=== PATIENT | male | born 1955 | race Caucasian/White ===

== ENCOUNTER 2019-01-11 06:36 | Day surgery (SDC) | payer MEDICARE, OTHER ==
[2019-01-07 08:55] VITALS: BMI 39.1
[~2019-01-11 06:36] MED LIST: LACTATED RINGERS 1,000 ML IV SCH
[2019-01-11 07:22] VITALS: TEMP 97.4
[2019-01-11 07:23] LABS: Glucose,Whole Blood 170 mg/dL (75-99)
[2019-01-11] MEDS ORDERED: PROPOFOL 10 MG/ML 20 ML VIAL IV ONE (07:36)
[2019-01-11 08:10] VITALS: RESP 16
--- NOTE | 2019-01-11 08:19 | P.PCN ---
Date of Procedure: 01/11/19 Procedure(s) Performed: Procedure: Colonoscopy and polypectomy and biopsy with Spot injection to localize a distal sigmoid lesion. Preoperative diagnosis: Screening for neoplasia, patient has history of polyps. Postoperative diagnosis: 1. Two small polyps in the proximal sigmoid snared and retrieved by suction. 2. Distal sigmoid flat lesion raising the possibility of cancer, biopsied and Spot injections used to localize it. Preparation: HalfLytely prep. Sedation: Was provided by anesthesia. Brief clinical history: The patient is 63-year-old male who is scheduled for this evaluation for screening for neoplasia because of history of polyps. He had 2 or 3 prior exams, his last exam was in 2010. The patient has no abdominal complaints, bleeding or anemia. Procedure: With the patient on his left lateral decubitus position and after informed consent and adequate sedation, the perianal area was inspected and it did not show any fissures or fistulas. There were no masses felt on digital rectal examination. The Olympus CFH 190L video colonoscope was then inserted in the rectum in the usual fashion and advanced to the cecum. There were 2 small polyp in the proximal sigmoid that were snared and retrieved by suction and in the distal sigmoid, around 25 cm from the anal verge, there was a flat polypoid lesion lesion measuring around 3 or 4 cm that raised the possibility of malignancy. A picture multiple biopsies were obtained and a total of 4 mL of Spot were injected to localize it. I retroflexed the endoscope in the rectum then the endoscope was withdrawn. The patient tolerated the procedure well. Plan: I summarized the findings to the patient and his . Will await pathology results and make further plans. I will keep you updated on his progress.
[2019-01-11 08:25] VITALS: PULSE 76
[2019-01-11 08:37] VITALS: BP 170/74
== END 2019-01-11 10:10 | disposition home or self-care (01) ==
LOC: ORWHC2ENDO 06:36
DX: Z12.11 Encounter for screening for malignant neoplasm of colon (principal); C18.7 Malignant neoplasm of sigmoid colon; D12.5 Benign neoplasm of sigmoid colon; Z86.010 Personal history of colon polyps; I10 Essential (primary) hypertension; E11.9 Type 2 diabetes mellitus without complications; M19.90 Unspecified osteoarthritis, unspecified site; E78.5 Hyperlipidemia, unspecified; G47.33 Obstructive sleep apnea (adult) (pediatric); Z99.89 Dependence on other enabling machines and devices; E66.01 Morbid (severe) obesity due to excess calories; Z68.39 Body mass index [BMI] 39.0-39.9, adult; Z79.4 Long term (current) use of insulin; Z79.899 Other long term (current) drug therapy
CPT/HCPCS: 88305; 45385; 45380; 45381; J2704; 44404

== ENCOUNTER → 2019-02-04 | Outpatient (CLI) | payer MEDICARE, OTHER ==
[2019-02-04 13:24] LABS: Blood Urea Nitrogen 15 mg/dL (9-20)
--- NOTE | 2019-02-04 14:48 | CT ---
EXAMINATION TYPE: CT ChestAbdPelvis w con DATE OF EXAM: 02/04/2019 COMPARISON: 09/09/2013 HISTORY: Abnormal colonoscopy, colon cancer. CT DLP: 1624 mGycm CONTRAST: CT scan of the chest, abdomen and pelvis is performed with Oral Contrast and with IV Contrast, patien t injected with 100 mL of Isovue M300. CT Chest: LUNGS: The lungs are clear and free of infiltrate or atelectasis. No pulmonary nodule or mass is det ected. No pleural effusion or CT evidence of interstitial lung disease. MEDIASTINUM: Thoracic aorta is of normal caliber. The heart is not enlarged. Stable mediastinal kiya nopathy. Correlate for sarcoidosis. HILAR STRUCTURES: No evidence for mass. Stable hilar adenopathy. OTHER: No significant abnormality. CONTRAST CT ABDOMEN AND PELVIS FINDINGS: LIVER/GB: Mild fatty hepatic infiltration noted. No calcified gallstones. No space occupying hepat ic lesion. Biliary tree is of normal caliber. PANCREAS: No inflammation. No distinct mass. SPLEEN: No splenic enlargement. No lesion seen. ADRENALS: No nodule. No thickening. KIDNEYS/BLADDER: No hydronephrosis. No nephrolithiasis. No disctinct renal mass. BOWEL: Normal appendix. There is rectosigmoid wall thickening this may reflect the site of the colono scopy abnormality. No obstructive change. No inflammation. GENITAL ORGANS: No gross abnormality. LYMPH NODES: No greater than 1cm abdominal or pelvic lymph nodes are appreciated. AORTA: No significant abnormality. OSSEOUS STRUCTURES: No significant abnormality is seen. OTHER: No significant additional abnormality is seen. IMPRESSION: 1. There is rectosigmoid wall thickening this may reflect the site of the colonoscopy abnormality. 2. No evidence for metastatic disease. 3. Hilar and mediastinal adenopathy may be on the basis of sarcoidosis. Correlate clinically.
== END | disposition home or self-care (01) ==
LOC: RADCTMAIN 12:27
PROVIDERS: ATTEND Internal Medicine Hematology & Oncology
DX: C18.7 Malignant neoplasm of sigmoid colon (principal); K63.89 Other specified diseases of intestine; R59.0 Localized enlarged lymph nodes
CPT/HCPCS: 82565; 84520; 71260; 74177; 36415; Q9967

== ENCOUNTER → 2019-03-09 | Outpatient (CLI) | payer MEDICARE, OTHER ==
[2019-03-09 10:50] LABS: HCT 43.9 % (39.0-53.0); HGB 15.2 gm/dL (13.0-17.5); MCH 31.2 pg (25.0-35.0); MCHC 34.6 g/dL (31.0-37.0); MCV 90.1 fL (80.0-100.0); Mean Platelet Volume 7.4; Platelet Count 267 k/uL (150-450); RBC 4.88 m/uL (4.30-5.90); RDW 13.7 % (11.5-15.5); WBC 6.2 k/uL (3.8-10.6)
[2019-03-09 11:23] LABS: Potassium 4.4 mmol/L (3.5-5.1)
== END ==
LOC: LABPAT 08:53
PROVIDERS: ATTEND Surgery
DX: Z01.818 Encounter for other preprocedural examination (principal); Z01.812 Encounter for preprocedural laboratory examination; C18.9 Malignant neoplasm of colon, unspecified
CPT/HCPCS: 36415; 80051; 85027; 93005

== ENCOUNTER 2019-03-11 06:26 | Inpatient (IN) | payer MEDICARE, OTHER ==
[~2019-03-11 06:26] MED LIST changes: +ALVIMOPAN 12 MG CAPSULE PO ONE; +DEXAMETHASONE SOD PHOSPHATE 10 MG/ML 1 ML VIAL IV ONE; +HEPARIN SODIUM,PORCINE 5,000 UNIT/ML 1 ML VIAL SQ ONE; +HYDROmorphone 0.5 MG/0.5 ML SYRINGE IVP PRN; -LACTATED RINGERS 1,000 ML IV SCH; +ONDANSETRON 4 MG/2 ML VIAL IVP ONE; +ceFAZolin 3 GM in SODIUM CHLORIDE 0.9% 100 ML IVPB ONE; +metroNIDAZOLE-NS PMX 500 MG in SALINE 1 100ML.BAG IVPB ONE
[2019-03-11 07:09] LABS: Glucose,Whole Blood 290 mg/dL (75-99)
[2019-03-11] MEDS: LACTATED RINGERS 1,000 ML IV SCH (07:09)
[2019-03-11] MEDS ORDERED: LIDOCAINE 1% 20 ML VIAL (10MG/ML) FOR IV START INTRADERMA ONE (07:14)
--- NOTE | 2019-03-11 07:16 | P.GSHP ---
History of Present Illness H&P Date: 03/11/19 Chief Complaint: Sigmoid colon cancer 63-year-old male seen in the office in late January. Patient is asymptomatic but was found on colonoscopy to have a adenocarcinoma at 25 cm. Denies constipation. No rectal bleeding. Recent CAT scan shows no evidence of metastasis. Past Medical History Past Medical History: Diabetes Mellitus, Hyperlipidemia, Hypertension, Osteoarthritis (OA), Sleep Apnea/CPAP/BIPAP Additional Past Medical History / Comment(s): uses cpap, sarcoidosis History of Any Multi-Drug Resistant Organisms: None Reported Past Surgical History: Adenoidectomy, Joint Replacement, Tonsillectomy Additional Past Surgical History / Comment(s): BILAT TKA. COLONOSCOPY Past Anesthesia/Blood Transfusion Reactions: No Reported Reaction Additional Psychological History / Comment(s): Depression and panic attacks with last knee surgery related to pain control. Past Alcohol Use History: None Reported - Past Family History Mother Family Medical History: Cancer Additional Family Medical History / Comment(s): colon Father Family Medical History: CVA/TIA Sister(s) Family Medical History: Cancer Additional Family Medical History / Comment(s): pancreatic Brother(s) Additional Family Medical History / Comment(s): in sleep at age 51. Medications and Allergies Home Medications Medication Instructions Recorded Confirmed Type Atorvastatin [Lipitor] 40 mg PO HS 10/15/16 03/11/19 History Losartan Potassium [Cozaar] 50 mg PO QAM 10/15/16 03/11/19 History metFORMIN HCL 1,000 mg PO BID 10/15/16 03/11/19 History Insulin Glargine,Hum.rec.anlog 64 mg SQ QAM 01/07/19 03/11/19 History [Patrick Christianson] Allergies Allergy/AdvReac Type Severity Reaction Status Date / Time No Known Allergies Allergy Verified 03/08/19 14:15 Surgical - Exam Vital Signs Temp Pulse Resp BP Pulse Ox 97.9 F 77 16 162/85 97 03/11/19 06:57 03/11/19 06:57 03/11/19 06:57 03/11/19 06:57 03/11/19 06:57 Physical exam: General: Well-developed, well-nourished HEENT: Normocephalic, sclerae nonicteric Abdomen: Nontender, nondistended Extremities: No edema Neuro: Alert and oriented Results - Labs Abnormal Lab Results - Last 24 Hours (Table) 03/11/19 Range/Units 07:02 POC Glucose (mg/dL) 290 H (75-99) mg/dL Assessment and Plan (1) Cancer of sigmoid colon Narrative/Plan: Options review the patient. We'll proceed with sigmoid colectomy at this time. Risks of bleeding, infection, leak, abscess, recurrent injury, hernia, respiratory and cardiac consultations reviewed. Additionally the patient I discussed on several occasions over the last few weeks the issues regarding the EEA stapler not being available in the size 29. At this time we decided to proceed with resection knowing that we have the size 25, 33 and options of handsewn anastomosis available to us. They understand and wish to proceed. Current Visit: Yes Status: Acute Code(s): C18.7 - MALIGNANT NEOPLASM OF SIGMOID COLON SNOMED Code(s): 942170305
[2019-03-11] MEDS: MIDAZOLAM (PF) 2 MG/2 ML VIAL IV PRN ×2 (07:26→07:29)
[2019-03-11] MEDS ORDERED: fentaNYL (PF) 50 MCG/ML 2 ML AMP IVP ONE ×2 (07:26→07:29)
[2019-03-11] MEDS ORDERED: ONDANSETRON 4 MG/2 ML VIAL IVP PRN (07:47)
[2019-03-11] MEDS ORDERED: NALOXONE 0.4 MG/ML 1 ML VIAL IV PRN (07:47)
[2019-03-11] MEDS ORDERED: ROCURONIUM BROMIDE 10 MG/ML 10 ML VIAL IV ONE (07:50)
[2019-03-11] MEDS ORDERED: PHENYLEPHRINE-0.9% NACL SYG 1 MG/10 ML SYRINGE ONE (07:50)
[2019-03-11] MEDS ORDERED: PROPOFOL 10 MG/ML 20 ML VIAL IV ONE (07:50)
[2019-03-11] MEDS ORDERED: LIDOCAINE 1% INJ 10MG/ML (20 ML MDV) ONE (07:50)
[2019-03-11] MEDS ORDERED: SUCCINYLCHOLINE CHLORIDE VIAL 200 MG/10 ML VIAL IV ONE (07:50)
[2019-03-11] MEDS ORDERED: MIDAZOLAM 2 MG/2 ML VIAL ONE (07:50)
[2019-03-11] MEDS ORDERED: fentaNYL (PF) 50 MCG/ML 2 ML AMP ONE (07:50)
[2019-03-11] MEDS ORDERED: NEOSTIGMINE 1 MG/ML 10 ML VIAL ONE (07:50)
[2019-03-11] MEDS ORDERED: GLYCOPYRROLATE 0.2 MG/ML 2 ML VIAL ONE (07:50)
[2019-03-11 09:15] LABS: Glucose,Whole Blood 268 mg/dL (75-99)
[2019-03-11] MEDS ORDERED: LACTATED RINGERS 1,000 ML IV ONE (10:40)
[2019-03-11] MEDS: ROPIVACAINE 250 MG, HYDROMORPHONE (PF) 5 MG in SODIUM CHLORIDE 0.9% 200 ML EPIDURAL PRN ×2 (10:59→11:41)
[2019-03-11] MEDS ORDERED: HYDROmorphone 1 MG/ML 1 ML SYRINGE IVP PRN (11:05)
[2019-03-11] MEDS ORDERED: METOCLOPRAMIDE 5 MG/ML 2 ML VIAL IVP PRN (11:05)
--- NOTE | 2019-03-11 11:13 | P.OP ---
Date of Procedure: 03/11/19 Procedure(s) Performed: PREOPERATIVE DIAGNOSIS: Sigmoid cancer POSTOPERATIVE DIAGNOSIS: Distal sigmoid colon cancer PROCEDURE: Sigmoid colectomy with low anterior anastomosis SURGEON: Imelda EBL: 25 mL ANESTHESIA: General COMPLICATIONS: None OPERATIVE PROCEDURE: Patient place in the operative table in the supine position. The patient was placed under general anesthesia. The patient was then placed in lithotomy. The abdomen was prepped and draped in usual sterile fashion. A vertical incision was made extending from the supraumbilical region to the suprapubic location. The fascia was divided as well. The Bookwalter retractor was utilized. The sigmoid colon was fully mobilized by incising the white line of Toldt. The left and right ureters were both identified and preserved. The patient's lesion was identified proximal to the peritoneal reflection by approximately 8 cm. A site was chosen to divide the sigmoid colon. Prior to doing so a small colotomy was made and the 28 EEA anvil was advanced into the lumen with an 0 silk tie. This was placed proximal to our staple line in the linear stapler was then fired. The mesentery was divided using the LigaSure device. No bleeding was seen. Dissection took place down to the proximal rectum where the tenia was noted to splay out. The proximal rectum was divided using the contour stapler. The specimen was passed off the field at that point. The anvil within the colon was then brought out to the staple line. A 3-0 silk pursestring suture was placed. The stapler was then inserted into the anus and brought up to the staple line. The obturator was brought out just posterior to the staple line. The 2 portions of the stapler were connected to one another and subsequently tightened and fired. The bowel was clamped proximal to the anastomosis. The rigid sigmoidoscope was utilized to fill the anastomotic site nicely with air. There was saline in the pelvis at this time. No evidence of leak was seen. The abdomen was irrigated with saline. The liver, stomach, visualized colon, and small bowel appeared normal. The midline fascia was then reapproximated using 3 separate double-stranded #1 PDS sutures. The subcutaneous tissues were closed using 3-0 Vicryl sutures. The skin was then closed using clementina. Sterile dressings were then applied. DISPOSITION: Stable to recovery room
[2019-03-11] MEDS ORDERED: INSULIN ASPART (NovoLOG) 100 UNIT/ML VIAL SQ ONE (11:16)
[2019-03-11 11:19] LABS: Glucose,Whole Blood 319 mg/dL (75-99)
[2019-03-11 11:46] LABS: Glucose,Whole Blood 318 mg/dL (75-99)
[2019-03-11] MEDS ORDERED: D5-0.45% NACL WITH KCL 20MEQ/L 1,000 ML IV SCH (12:00)
--- NOTE | 2019-03-11 14:40 | P.CONS ---
History of Present Illness - Reason for Consult Consult date: 03/11/19 Medical management Requesting physician: El Segura - Chief Complaint Sigmoid colon cancer - History of Present Illness This is a 63-year-old male, patient of Dr. Suggs. He has a known past medical history of hypertension, hyperlipidemia, COPD, sarcoidosis, diabetes mellitus type 2, obstructive sleep apnea and uses CPAP. He does have a father with a known history of colon cancer. Patient had a routine colonoscopy that revealed adenocarcinoma. Patient was asymptomatic. Denies any change in bowel habits. Denies any rectal bleeding. We have been consulted for medical management. Patient has ordered he had some clear liquids. Denies any abdominal pain any nausea or vomiting. Denies any chest pain or shortness of breath. Urine output is adequate. Kinney catheter is in place. Denies any fevers chills or sweats. Review of Systems Please refer to HPI otherwise unremarkable Past Medical History Past Medical History: Diabetes Mellitus, Hyperlipidemia, Hypertension, Osteoarthritis (OA), Sleep Apnea/CPAP/BIPAP Additional Past Medical History / Comment(s): uses cpap, sarcoidosis History of Any Multi-Drug Resistant Organisms: None Reported Past Surgical History: Adenoidectomy, Joint Replacement, Tonsillectomy Additional Past Surgical History / Comment(s): BILAT TKA. COLONOSCOPY Past Anesthesia/Blood Transfusion Reactions: No Reported Reaction Additional Psychological History / Comment(s): Depression and panic attacks with last knee surgery related to pain control. Past Alcohol Use History: None Reported - Past Family History Mother Family Medical History: Cancer Additional Family Medical History / Comment(s): colon Father Family Medical History: CVA/TIA Sister(s) Family Medical History: Cancer Additional Family Medical History / Comment(s): pancreatic Brother(s) Additional Family Medical History / Comment(s): in sleep at age 51. Medications and Allergies Home Medications Medication Instructions Recorded Confirmed Type Atorvastatin [Lipitor] 40 mg PO HS 10/15/16 03/11/19 History Losartan Potassium [Cozaar] 50 mg PO QAM 10/15/16 03/11/19 History metFORMIN HCL 1,000 mg PO BID 10/15/16 03/11/19 History Insulin Glargine,Hum.rec.anlog 64 mg SQ QAM 01/07/19 03/11/19 History [Toujeo Max Solostar] Hydrocodone/Acetaminophen [[place] 1 tab PO Q6HR PRN 3 Days #10 tab 03/11/19 Rx 5-325] Allergies Allergy/AdvReac Type Severity Reaction Status Date / Time No Known Allergies Allergy Verified 03/11/19 12:08 Physical Exam Vitals: Vital Signs Temp Pulse Pulse Resp BP BP Pulse Ox 03/11/19 11:45 86 18 130/65 97 03/11/19 11:30 87 18 128/66 97 03/11/19 11:15 83 18 127/71 97 03/11/19 11:01 80 16 123/65 94 L 03/11/19 10:45 97.1 F L 82 16 134/68 95 03/11/19 07:49 79 16 185/98 92 L 03/11/19 06:57 97.9 F 77 16 162/85 97 Intake and Output 03/10/19 03/11/19 03/11/19 22:59 06:59 14:59 Intake Total 1916.2 Output Total 400 Balance 1516.2 Intake: IV 1916.2 Output: Urine 325 Estimated Blood Loss 75 Head normocephalic Neck supple Lungs clear to auscultation bilaterally no wheezing or crackles Heart regular rate and rhythm S1-S2, no rub or gallop Abdomen is soft nontender no bowel sounds at this time. Abdominal binder in place. Extremities no edema wearing SCDs Neuro alert and orientated to 3 Results CBC & Chem 7: 03/11/19 07:00 Labs: Abnormal Lab Results - Last 24 Hours (Table) 03/11/19 03/11/19 03/11/19 Range/Units 07:02 09:04 11:05 POC Glucose (mg/dL) 290 H 268 H 319 H (75-99) mg/dL 03/11/19 Range/Units 11:43 POC Glucose (mg/dL) 318 H (75-99) mg/dL Assessment and Plan Assessment: 1. 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 Postop day #0. Surgery completed by Dr. Cheung. Estimated blood loss 25 ml. no complications reported. Patient has been started on clear liquids by surgical service. Pain is controlled. 2. Essential hypertension: Blood pressures, stable resume Cozaar 3. History of diabetes mellitus type 2: Resume patient's Toujeo and metformin. Blood sugars are in the 300s. There is dextrose in the IV fluids and he did receive a dose of IV dexamethasone. We'll add sliding scale coverage. And change fluids to normal saline at 125cc/hr. Check hemoglobin A1c 4. Hyperlipidemia: Continue statin 5. History of sarcoidosis 6. History of COPD stable no evidence of exacerbation 7. History of obstructive sleep apnea uses CPAP machine at home GI prophylaxis Pepcid and DVT prophylaxis subcu heparin Thank you for this consultation. We will continue to follow along and patient hospitalization. Time with Patient: Greater than 30 (Greater than 50% of the total time spent in counseling and coordination of care.I performed an examination of the patient and discussed their management with the physician Spray Gun Repairer. I have reviewed the Physician Spray Gun Repairer's notes and agree with the documented findings and plan of care)
[2019-03-11] MEDS: SODIUM CHLORIDE 0.9% 1,000 ML IV SCH ×2 (15:07→23:51)
[2019-03-11] MEDS: INSULIN ASPART (NovoLOG) 100 UNIT/ML VIAL SQ SCH ×2 (17:05→20:17)
[2019-03-11] MEDS: HEPARIN SODIUM,PORCINE 5,000 UNIT/ML 1 ML VIAL SQ SCH ×2 (17:05→23:51)
[2019-03-11 17:12] LABS: Glucose,Whole Blood 307 mg/dL (75-99)
[2019-03-11] MEDS: ALVIMOPAN 12 MG CAPSULE PO SCH ×2 (20:11→20:17)
[2019-03-11] MEDS: FAMOTIDINE 20 MG/2 ML VIAL IV SCH (20:12)
[2019-03-11] MEDS: ATORVASTATIN 40 MG TAB PO SCH (20:12)
[2019-03-11] MEDS: metFORMIN 500 MG TAB PO SCH (20:12)
[2019-03-11 20:25] LABS: Glucose,Whole Blood 170 mg/dL (75-99)
[2019-03-11 21:19] LABS: Hemoglobin A1C 9.1 % (4.0-6.0)
[2019-03-11 22:24] LABS: Glucose,Whole Blood 186 mg/dL (75-99)
[2019-03-12] MEDS: LACTATED RINGERS 1,000 ML IV SCH (03:47)
[2019-03-12] MEDS: SODIUM CHLORIDE 0.9% 1,000 ML IV SCH ×2 (04:27→15:33)
[2019-03-12 07:21] LABS: Basophils % (A) 0 %; Eosinophils % (A) 0 %; HCT 40.2 % (39.0-53.0); HGB 13.6 gm/dL (13.0-17.5); Lymphocytes # (A) 1.4 k/uL (1.0-4.8); Lymphocytes % (A) 14 %; MCH 31.3 pg (25.0-35.0); MCHC 33.9 g/dL (31.0-37.0); MCV 92.4 fL (80.0-100.0); Mean Platelet Volume 7.2; Monocytes # (A) 0.6 k/uL (0-1.0); Monocytes % (A) 6 %; Neutrophils # (A) 7.8 k/uL (1.3-7.7); Neutrophils % (A) 78 %; Platelet Count 302 k/uL (150-450); RBC 4.35 m/uL (4.30-5.90); RDW 13.5 % (11.5-15.5)
[2019-03-12 07:39] LABS: Glucose,Whole Blood 175 mg/dL (75-99)
[2019-03-12 07:40] LABS: Anion Gap 8 mmol/L; Blood Urea Nitrogen 13 mg/dL (9-20); Calcium 9.1 mg/dL (8.4-10.2); Carbon Dioxide 27 mmol/L (22-30); Chloride 103 mmol/L (98-107); Glucose 152 mg/dL (74-99); Potassium 4.4 mmol/L (3.5-5.1); Sodium 138 mmol/L (137-145)
[2019-03-12] MEDS: LOSARTAN 50 MG TAB PO SCH (08:10)
[2019-03-12] MEDS: INSULIN ASPART (NovoLOG) 100 UNIT/ML VIAL SQ SCH ×4 (08:10→21:28)
[2019-03-12] MEDS: HEPARIN SODIUM,PORCINE 5,000 UNIT/ML 1 ML VIAL SQ SCH ×2 (08:10→15:34)
[2019-03-12] MEDS: ALVIMOPAN 12 MG CAPSULE PO SCH ×2 (08:10→21:23)
[2019-03-12] MEDS: FAMOTIDINE 20 MG/2 ML VIAL IV SCH ×2 (08:10→21:23)
[2019-03-12] MEDS: metFORMIN 500 MG TAB PO SCH ×2 (08:10→21:23)
[2019-03-12] MEDS: INSULIN DETEMIR (LEVEMIR) 100 UNIT/ML SYR SQ SCH (08:30)
--- NOTE | 2019-03-12 10:21 | P.PN ---
Subjective Progress Note Date: 03/12/19 Principal diagnosis: Sigmoid colon cancer Patient doing well today. He did have an episode of vomiting yesterday. Minimal nausea today. He already has ambulated. Labs look great. Vital signs have been stable. Objective - Vital Signs Vital signs: Vital Signs Temp 97.7 F 03/12/19 08:19 Pulse 81 03/12/19 08:19 Resp 16 03/12/19 08:19 BP 111/64 03/12/19 08:19 Pulse Ox 95 03/12/19 08:19 Intake & Output 03/11/19 03/12/19 03/12/19 18:59 06:59 18:59 Intake Total 1916.2 Output Total 1600 1325 Balance 316.2 -1325 Intake: IV 1916.2 Output: Urine 1525 1325 Uretheral (Kinney) 1325 Estimated Blood Loss 75 Other: Voiding Method Indwelling Catheter Indwelling Catheter Indwelling Catheter - Exam Narrative: Soft, nondistended, minimal tenderness, dressing clean and dry - Labs CBC & Chem 7: 03/12/19 06:48 03/12/19 06:48 Labs: Abnormal Lab Results - Last 24 Hours (Table) 03/09/19 03/11/19 03/11/19 Range/Units 09:43 11:05 11:43 Neutrophils # (1.3-7.7) k/uL Glucose (74-99) mg/dL POC Glucose (mg/dL) 319 H 318 H (75-99) mg/dL Hemoglobin A1c 9.1 H (4.0-6.0) % 03/11/19 03/11/19 03/11/19 Range/Units 16:43 20:13 22:13 Neutrophils # (1.3-7.7) k/uL Glucose (74-99) mg/dL POC Glucose (mg/dL) 307 H 170 H 186 H (75-99) mg/dL Hemoglobin A1c (4.0-6.0) % 03/12/19 03/12/19 03/12/19 Range/Units 06:48 06:48 07:24 Neutrophils # 7.8 H (1.3-7.7) k/uL Glucose 152 H (74-99) mg/dL POC Glucose (mg/dL) 175 H (75-99) mg/dL Hemoglobin A1c (4.0-6.0) % Assessment and Plan (1) Cancer of sigmoid colon Narrative/Plan: Continue clear liquids. Ambulate. Keep epidural and Kinney catheter for now. Repeat labs tomorrow. Current Visit: Yes Status: Acute Code(s): C18.7 - MALIGNANT NEOPLASM OF SIGMOID COLON SNOMED Code(s): 089142071
--- NOTE | 2019-03-12 11:33 | P.PN ---
Subjective Progress Note Date: 03/12/19 This is a 63-year-old male, patient of Dr. Suggs. He has a known past medical history of hypertension, hyperlipidemia, COPD, sarcoidosis, diabetes mellitus type 2, obstructive sleep apnea and uses CPAP. He does have a father with a known history of colon cancer. Patient had a routine colonoscopy that revealed adenocarcinoma. Patient was asymptomatic. Denies any change in bowel habits. Denies any rectal bleeding. We have been consulted for medical management. Patient has ordered he had some clear liquids. Denies any abdominal pain any nausea or vomiting. Denies any chest pain or shortness of breath. Urine output is adequate. Kinney catheter is in place. Denies any fevers chills or sweats. On 03/12/2019 patient was seen and examined on the medical floor he is alert and oriented 3 in no apparent distress there is no fever or chills no headache or dizziness no chest pain no shortness of breath no cough no nausea or vomiting no abdominal pain no diarrhea and no urinary symptoms Kinney catheter is still in. Objective - Vital Signs Vital signs: Vital Signs Temp 97.7 F 03/12/19 08:19 Pulse 81 03/12/19 08:19 Resp 16 03/12/19 08:19 BP 111/64 03/12/19 08:19 Pulse Ox 95 03/12/19 08:19 Intake & Output 03/11/19 03/12/19 03/12/19 18:59 06:59 18:59 Intake Total 1916.2 Output Total 1600 1325 Balance 316.2 -1325 Intake: IV 1916.2 Output: Urine 1525 1325 Uretheral (Kinney) 1325 Estimated Blood Loss 75 Other: Voiding Method Indwelling Catheter Indwelling Catheter Indwelling Catheter - Exam Head normocephalic and atraumatic Neck supple no JVD no goiter Lungs clear to auscultation bilaterally no wheezing or crackles Heart regular rate and rhythm S1-S2, no rub or gallop Abdomen is soft nontender no bowel sounds at this time. Abdominal binder in place. Extremities no edema wearing SCDs no cyanosis or clubbing Neuro alert and orientated to 3 no gross focal deficit - Labs CBC & Chem 7: 03/12/19 06:48 03/12/19 06:48 Labs: Abnormal Lab Results - Last 24 Hours (Table) 03/09/19 03/11/1919 Range/Units 09:43 11:43 16:43 Neutrophils # (1.3-7.7) k/uL Glucose (74-99) mg/dL POC Glucose (mg/dL) 318 H 307 H (75-99) mg/dL Hemoglobin A1c 9.1 H (4.0-6.0) % 03/11/19 03/11/19 03/12/19 Range/Units 20:13 22:13 06:48 Neutrophils # 7.8 H (1.3-7.7) k/uL Glucose (74-99) mg/dL POC Glucose (mg/dL) 170 H 186 H (75-99) mg/dL Hemoglobin A1c (4.0-6.0) % 03/12/19 03/12/19 Range/Units 06:48 07:24 Neutrophils # (1.3-7.7) k/uL Glucose 152 H (74-99) mg/dL POC Glucose (mg/dL) 175 H (75-99) mg/dL Hemoglobin A1c (4.0-6.0) % Assessment and Plan Plan: 1. 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 Postop day #1. Surgery completed by Dr. Segura. Estimated blood loss 25 ml. no complications reported. Patient has been started on clear liquids by surgical service. Pain is controlled. 2. Essential hypertension: Blood pressures, stable resume Cozaar 3. History of diabetes mellitus type 2: Resume patient's Toujeo and metformin. Blood sugars are in the 300s. There is dextrose in the IV fluids and he did receive a dose of IV dexamethasone. We'll add sliding scale coverage. And change fluids to normal saline at 125cc/hr. hemoglobin A1c elevated at 9.1 continue Toujeo, metformin and sliding scale patient will need short-acting insulin or sulfonylurea before meals and at the time of discharge 4. Hyperlipidemia: Continue statin 5. History of sarcoidosis 6. History of COPD stable no evidence of exacerbation 7. History of obstructive sleep apnea uses CPAP machine at home GI prophylaxis Pepcid and DVT prophylaxis subcu heparin Medication and labs were reviewed patient is stable continue current management recheck labs in a.m.
[2019-03-12 12:44] LABS: Glucose,Whole Blood 221 mg/dL (75-99)
[2019-03-12 14:37] VITALS: BMI 41.8
[2019-03-12 17:07] LABS: Glucose,Whole Blood 167 mg/dL (75-99)
[2019-03-12] MEDS: ROPIVACAINE 250 MG, HYDROMORPHONE (PF) 5 MG in SODIUM CHLORIDE 0.9% 200 ML EPIDURAL PRN (17:20)
--- NOTE | 2019-03-12 20:20 | P.PN ---
Progress Note - Text Progress Note Date: 03/12/19 Postoperative day # 1 status post sigmoid colectomy ,epidural catheter placed for postoperative analgesia, patient doing well epidural site okay, patient currently on combination of epidural infusion solution of Ropivacaine 0.0625% and Dilaudid 20 g per mL the infusion rate at 7 ml per hour , patient had no motor deficit epidural site okay , vital signs stable ,VAS 0/10 , Assessment and plan= post operative day #1 patient doing well ,pain well controlled , there is no anesthesia related complications
[2019-03-12 20:43] LABS: Glucose,Whole Blood 95 mg/dL (75-99)
[2019-03-12] MEDS: ATORVASTATIN 40 MG TAB PO SCH (21:24)
[2019-03-13] MEDS: HEPARIN SODIUM,PORCINE 5,000 UNIT/ML 1 ML VIAL SQ SCH ×3 (01:04→16:27)
[2019-03-13] MEDS: SODIUM CHLORIDE 0.9% 1,000 ML IV SCH ×3 (01:04→10:52)
[2019-03-13 02:07] LABS: Glucose,Whole Blood 77 mg/dL (75-99)
[2019-03-13 05:27] LABS: Glucose,Whole Blood 75 mg/dL (75-99)
[2019-03-13 07:23] LABS: Glucose,Whole Blood 96 mg/dL (75-99)
[2019-03-13 07:39] LABS: Basophils % (A) 0 %; Eosinophils # (A) 0.1 k/uL (0-0.7); Eosinophils % (A) 1 %; HCT 38.9 % (39.0-53.0); Lymphocytes # (A) 1.3 k/uL (1.0-4.8); Lymphocytes % (A) 15 %; MCH 31.2 pg (25.0-35.0); MCHC 33.4 g/dL (31.0-37.0); MCV 93.4 fL (80.0-100.0); Mean Platelet Volume 6.9; Monocytes # (A) 0.5 k/uL (0-1.0); Monocytes % (A) 6 %; Neutrophils # (A) 6.4 k/uL (1.3-7.7); Neutrophils % (A) 76 %; Platelet Count 244 k/uL (150-450); RBC 4.16 m/uL (4.30-5.90); RDW 12.8 % (11.5-15.5); WBC 8.5 k/uL (3.8-10.6)
[2019-03-13 07:52] LABS: ALT 33 U/L (21-72); AST 28 U/L (17-59); Albumin 3.5 g/dL (3.5-5.0); Alkaline Phosphatase 62 U/L (38-126); Anion Gap 6 mmol/L; Blood Urea Nitrogen 7 mg/dL (9-20); Calcium 9.1 mg/dL (8.4-10.2); Carbon Dioxide 29 mmol/L (22-30); Chloride 104 mmol/L (98-107); Glucose 81 mg/dL (74-99); Potassium 3.9 mmol/L (3.5-5.1); Sodium 139 mmol/L (137-145); Total Bilirubin 0.6 mg/dL (0.2-1.3)
[2019-03-13] MEDS: ALVIMOPAN 12 MG CAPSULE PO SCH ×2 (08:12→21:25)
[2019-03-13] MEDS: LOSARTAN 50 MG TAB PO SCH (08:12)
[2019-03-13] MEDS: metFORMIN 500 MG TAB PO SCH ×2 (08:12→21:25)
[2019-03-13] MEDS: FAMOTIDINE 20 MG/2 ML VIAL IV SCH ×2 (08:12→21:25)
[2019-03-13] MEDS: INSULIN ASPART (NovoLOG) 100 UNIT/ML VIAL SQ SCH ×4 (08:13→21:25)
[2019-03-13] MEDS: INSULIN DETEMIR (LEVEMIR) 100 UNIT/ML SYR SQ SCH (08:13)
--- NOTE | 2019-03-13 09:59 | P.PN ---
Subjective Progress Note Date: 03/13/19 Principal diagnosis: Sigmoid colon cancer Patient doing well today. Denies any significant pain. He is ambulating quite a bit at this time. No further nausea or vomiting. Tolerating clears. No flatus. White blood cell count normal. Hemoglobin stable. Objective - Vital Signs Vital signs: Vital Signs Temp 98.0 F 03/13/19 07:28 Pulse 82 03/13/19 07:28 Resp 20 03/13/19 07:28 BP 141/70 03/13/19 07:28 Pulse Ox 94 L 03/13/19 07:28 Intake & Output 03/12/19 03/13/19 03/13/19 18:59 06:59 18:59 Intake Total 1500 Output Total 3000 1200 Balance -1500 -1200 Weight 124.738 kg Intake: Oral 1500 Output: Urine 3000 1200 Other: Voiding Method Indwelling Catheter Indwelling Catheter Indwelling Catheter - Exam Abdomen: Soft, mild distention, dressing clean and dry, nontender - Labs CBC & Chem 7: 03/13/19 07:07 03/13/19 07:07 Labs: Abnormal Lab Results - Last 24 Hours (Table) 03/12/19 03/12/19 03/13/19 Range/Units 12:33 16:54 07:07 RBC 4.16 L (4.30-5.90) m/uL Hct 38.9 L (39.0-53.0) % BUN (9-20) mg/dL POC Glucose (mg/dL) 221 H 167 H (75-99) mg/dL Total Protein (6.3-8.2) g/dL 03/13/19 Range/Units 07:07 RBC (4.30-5.90) m/uL Hct (39.0-53.0) % BUN 7 L (9-20) mg/dL POC Glucose (mg/dL) (75-99) mg/dL Total Protein 6.0 L (6.3-8.2) g/dL Assessment and Plan (1) Cancer of sigmoid colon Narrative/Plan: Will gradually advance diet. Increase activity. Decrease IV fluid rate. Current Visit: Yes Status: Acute Code(s): C18.7 - MALIGNANT NEOPLASM OF SIGMOID COLON SNOMED Code(s): 875934918
[2019-03-13 12:23] LABS: Glucose,Whole Blood 131 mg/dL (75-99)
--- NOTE | 2019-03-13 13:56 | P.PN ---
Subjective Progress Note Date: 03/13/19 This is a 63-year-old male, patient of Dr. Suggs. He has a known past medical history of hypertension, hyperlipidemia, COPD, sarcoidosis, diabetes mellitus type 2, obstructive sleep apnea and uses CPAP. He does have a father with a known history of colon cancer. Patient had a routine colonoscopy that revealed adenocarcinoma. Patient was asymptomatic. Denies any change in bowel habits. Denies any rectal bleeding. We have been consulted for medical management. Patient has ordered he had some clear liquids. Denies any abdominal pain any nausea or vomiting. Denies any chest pain or shortness of breath. Urine output is adequate. Kinney catheter is in place. Denies any fevers chills or sweats. On 03/12/2019 patient was seen and examined on the medical floor he is alert and oriented 3 in no apparent distress there is no fever or chills no headache or dizziness no chest pain no shortness of breath no cough no nausea or vomiting no abdominal pain no diarrhea and no urinary symptoms Kinney catheter is still in. On 03/13/2019 Patient was seen and examined on the medical he is alert and oriented 3 in no apparent distress he was complaining of some abdominal pain he had a liquid bowel movement earlier this morning, otherwise it is no complaints there is no fever or chills no headache or dizziness no chest pain no shortness of breath no cough or vomiting no urinary symptoms Objective - Vital Signs Vital signs: Vital Signs Temp 98.0 F 03/13/19 07:28 Pulse 82 03/13/19 07:28 Resp 20 03/13/19 07:28 BP 141/70 03/13/19 07:28 Pulse Ox 94 L 03/13/19 07:28 Intake & Output 03/12/19 03/13/19 03/13/19 18:59 06:59 18:59 Intake Total 1500 Output Total 3000 1200 1000 Balance -1500 -1200 -1000 Weight 124.738 kg Intake: Oral 1500 Output: Urine 3000 1200 1000 Other: Voiding Method Indwelling Catheter Indwelling Catheter Indwelling Catheter - Exam Head normocephalic and atraumatic Neck supple no JVD no goiter Lungs clear to auscultation bilaterally no wheezing or crackles Heart regular rate and rhythm S1-S2, no rub or gallop Abdomen is soft nontender no bowel sounds at this time. Abdominal binder in place. Extremities no edema wearing SCDs no cyanosis or clubbing Neuro alert and orientated to 3 no gross focal deficit - Labs CBC & Chem 7: 03/13/19 07:07 03/13/19 07:07 Labs: Abnormal Lab Results - Last 24 Hours (Table) 03/12/19 03/13/19 03/13/19 Range/Units 16:54 07:07 07:07 RBC 4.16 L (4.30-5.90) m/uL Hct 38.9 L (39.0-53.0) % BUN 7 L (9-20) mg/dL POC Glucose (mg/dL) 167 H (75-99) mg/dL Total Protein 6.0 L (6.3-8.2) g/dL 03/13/19 Range/Units 11:59 RBC (4.30-5.90) m/uL Hct (39.0-53.0) % BUN (9-20) mg/dL POC Glucose (mg/dL) 131 H (75-99) mg/dL Total Protein (6.3-8.2) g/dL Assessment and Plan Plan: 1. 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 Postop day #1. Surgery completed by Dr. Segura. Estimated blood loss 25 ml. no complications reported. Patient has been started on clear liquids by surgical service. Pain is controlled. 2. Essential hypertension: Blood pressures, stable resume Cozaar 3. History of diabetes mellitus type 2: Resume patient's Toujeo and metformin. Blood sugars are in the 300s. There is dextrose in the IV fluids and he did receive a dose of IV dexamethasone. We'll add sliding scale coverage. And change fluids to normal saline at 125cc/hr. hemoglobin A1c elevated at 9.1 continue Toujeo, metformin and sliding scale patient will need short-acting insulin or sulfonylurea before meals and at the time of discharge 4. Hyperlipidemia: Continue statin 5. History of sarcoidosis 6. History of COPD stable no evidence of exacerbation 7. History of obstructive sleep apnea uses CPAP machine at home GI prophylaxis Pepcid and DVT prophylaxis subcu heparin Medication and labs were reviewed patient is stable continue current management recheck labs in a.m.
--- NOTE | 2019-03-13 17:29 | P.PN ---
Progress Note - Text Progress Note Date: 03/13/19 Postoperative day # 2 status post sigmoid colectomy ,epidural catheter placed for postoperative analgesia, patient doing well epidural site okay, patient currently on combination of epidural infusion solution of Ropivacaine 0.0625% and Dilaudid 20 g per mL the infusion rate at 7 ml per hour , patient had no motor deficit epidural site okay , vital signs stable ,VAS 0/10 , Assessment and plan= post operative day #2 patient doing well ,pain well controlled , there is no anesthesia related complications
[2019-03-13] MEDS: ROPIVACAINE 250 MG, HYDROMORPHONE (PF) 5 MG in SODIUM CHLORIDE 0.9% 200 ML EPIDURAL PRN (17:42)
[2019-03-13 17:43] LABS: Glucose,Whole Blood 197 mg/dL (75-99)
[2019-03-13 21:12] LABS: Glucose,Whole Blood 176 mg/dL (75-99)
[2019-03-13] MEDS: ATORVASTATIN 40 MG TAB PO SCH (21:25)
[2019-03-14] MEDS: HEPARIN SODIUM,PORCINE 5,000 UNIT/ML 1 ML VIAL SQ SCH ×4 (00:44→22:35)
[2019-03-14] MEDS: diphenhydrAMINE 50 MG/ML 1 ML VIAL IVP PRN ×2 (00:47→07:28)
[2019-03-14] MEDS: SODIUM CHLORIDE 0.9% 1,000 ML IV SCH ×3 (00:55→22:36)
--- NOTE | 2019-03-14 06:45 | P.PN ---
Progress Note - Text Progress Note Date: 03/14/19 Postoperative day # 3 status post sigmoid colectomy ,epidural catheter placed for postoperative analgesia, patient doing well epidural site okay, patient currently on combination of epidural infusion solution of Ropivacaine 0.0625% and Dilaudid 20 g per mL the infusion rate at 7 ml per hour , patient had no motor deficit epidural site okay , vital signs stable ,VAS 0/10 , Assessment and plan= post operative day #3 patient doing well ,pain well controlled , there is no anesthesia related complications, we will discontinue epidural today afternoon, or tomorrow morning
[2019-03-14] MEDS: INSULIN ASPART (NovoLOG) 100 UNIT/ML VIAL SQ SCH ×4 (07:23→22:35)
[2019-03-14] MEDS: FAMOTIDINE 20 MG/2 ML VIAL IV SCH (07:24)
[2019-03-14] MEDS: LOSARTAN 50 MG TAB PO SCH (07:24)
[2019-03-14] MEDS: INSULIN DETEMIR (LEVEMIR) 100 UNIT/ML SYR SQ SCH (07:24)
[2019-03-14] MEDS: metFORMIN 500 MG TAB PO SCH ×2 (07:24→22:34)
[2019-03-14] MEDS: ALVIMOPAN 12 MG CAPSULE PO SCH ×2 (07:24→22:34)
[2019-03-14 07:48] LABS: Glucose,Whole Blood 105 mg/dL (75-99)
[2019-03-14 07:57] LABS: Basophils % (A) 0 %; Eosinophils # (A) 0.2 k/uL (0-0.7); Eosinophils % (A) 2 %; HCT 38.6 % (39.0-53.0); HGB 13.1 gm/dL (13.0-17.5); Lymphocytes # (A) 1.8 k/uL (1.0-4.8); Lymphocytes % (A) 24 %; MCH 30.9 pg (25.0-35.0); MCHC 33.9 g/dL (31.0-37.0); MCV 91.2 fL (80.0-100.0); Monocytes # (A) 0.5 k/uL (0-1.0); Monocytes % (A) 6 %; Neutrophils % (A) 66 %; Platelet Count 279 k/uL (150-450); RBC 4.24 m/uL (4.30-5.90); RDW 13.4 % (11.5-15.5); WBC 7.6 k/uL (3.8-10.6)
[2019-03-14 08:09] LABS: Anion Gap 3 mmol/L; Blood Urea Nitrogen 4 mg/dL (9-20); Calcium 8.8 mg/dL (8.4-10.2); Carbon Dioxide 31 mmol/L (22-30); Chloride 105 mmol/L (98-107); Glucose 74 mg/dL (74-99); Potassium 3.8 mmol/L (3.5-5.1); Sodium 139 mmol/L (137-145)
--- NOTE | 2019-03-14 10:50 | P.PN ---
<Shirley Acevedo Karen - Last Filed: 03/14/19 10:49> Subjective Progress Note Date: 03/14/19 CHIEF COMPLAINT: Sigmoid cancer HISTORY OF PRESENT ILLNESS: Patient is status post sigmoid colectomy. Patient examined at the bedside. Patient reports he is passing flatus and has had a few small loose bowel movements. He denies abdominal pain at this time. Denies nausea or vomiting. Tolerating full liquid diet. Ambulating independently. Vital signs are stable. He is afebrile. White count 7.6. Hemoglobin 13.1. PHYSICAL EXAM: VITAL SIGNS: Reviewed. GENERAL: Well-developed in no acute distress. HEENT: No sclera icterus. Extraocular movements grossly intact. Moist buccal mucosa. Head is atraumatic, normocephalic. ABDOMEN: Soft. Nondistended. Surgical incision with old serosanguineous drainage noted. Abdominal binder present. NEUROLOGIC: Alert and oriented. Cranial nerves II through XII grossly intact. ASSESSMENT: 1. Sigmoid cancer, status post sigmoid colectomy PLAN: 1. Discontinue epidural 2. Discontinue urinary catheter 3. Activity as tolerated 4. Pain control 5. Incentive spirometry 6. Advance diet 7. Anticipate discharge home tomorrow Nurse practitioner note has been reviewed by physician. Signing provider agrees with the documented findings, assessment, and plan of care. Objective - Vital Signs Vital signs: Vital Signs Temp 97.8 F 03/14/19 06:54 Pulse 79 03/14/19 06:54 Resp 16 03/14/19 06:54 BP 115/74 03/14/19 06:54 Pulse Ox 95 03/14/19 06:54 Intake & Output 03/13/19 03/14/19 03/14/19 18:59 06:59 18:59 Intake Total 170.567 850 Output Total 1900 2100 1300 Balance -1729.433 1250 -1300 Intake: Intake, IV Titration 170.567 750 Amount Ropivacaine 250 mg 170.567 Hydromorphone (Pf) 5 mg In Sodium Chloride 0.9% 200 ml @ Per Protocol EPIDURAL .Q0M PRN Rx#: [id number] Sodium Chloride 0.9% 1, 750 000 ml @ 75 mls/hr IV . [id number] [facility] Rx#:[id number] Oral 100 Output: Urine 1900 2100 1300 Uretheral (Kinney) 2100 1300 Other: Voiding Method Indwelling Catheter Indwelling Catheter Indwelling Catheter # Voids 2 - Labs CBC & Chem 7: 03/14/19 06:46 03/14/19 06:46 Labs: Abnormal Lab Results - Last 24 Hours (Table) 03/13/19 03/13/19 03/13/19 Range/Units 11:59 17:17 20:55 RBC (4.30-5.90) m/uL Hct (39.0-53.0) % Carbon Dioxide (22-30) mmol/L BUN (9-20) mg/dL Creatinine (0.66-1.25) mg/dL POC Glucose (mg/dL) 131 H 197 H 176 H (75-99) mg/dL 03/14/19 03/14/19 03/14/19 Range/Units 06:46 06:46 06:53 RBC 4.24 L (4.30-5.90) m/uL Hct 38.6 L (39.0-53.0) % Carbon Dioxide 31 H (22-30) mmol/L BUN 4 L (9-20) mg/dL Creatinine 0.63 L (0.66-1.25) mg/dL POC Glucose (mg/dL) 105 H (75-99) mg/dL <El Segura - Last Filed: 03/14/19 16:52> Subjective Patient doing well today. Pain is well-controlled. Tolerating diet thus far. He is having stools. Anticipate probable discharge tomorrow. Objective - Vital Signs Vital signs: Vital Signs Temp 98.0 F 03/14/19 14:12 Pulse 95 03/14/19 14:12 Resp 16 03/14/19 14:12 BP 122/74 03/14/19 14:12 Pulse Ox 93 L 03/14/19 14:12 Intake & Output 03/13/19 03/14/19 03/14/19 18:59 06:59 18:59 Intake Total 170.567 850 Output Total 1900 2100 1300 Balance -1729.433 -1250 -1300 Intake: Intake, IV Titration 170.567 750 Amount Ropivacaine 250 mg 170.567 Hydromorphone (Pf) 5 mg In Sodium Chloride 0.9% 200 ml @ Per Protocol EPIDURAL .Q0M PRN Rx#: [id number] Sodium Chloride 0.9% 1, 750 000 ml @ 75 mls/hr IV . [id number] [facility] Rx#:[id number] Oral 100 Output: Urine 1900 2100 1300 Uretheral (Kinney) 2100 1300 Other: Voiding Method Indwelling Catheter Indwelling Catheter Indwelling Catheter # Voids 2 - Labs CBC & Chem 7: 03/14/19 06:46 03/14/19 06:46 Labs: Abnormal Lab Results - Last 24 Hours (Table) 03/13/19 03/13/19 03/14/19 Range/Units 17:17 20:55 06:46 RBC 4.24 L (4.30-5.90) m/uL Hct 38.6 L (39.0-53.0) % Carbon Dioxide (22-30) mmol/L BUN (9-20) mg/dL Creatinine (0.66-1.25) mg/dL POC Glucose (mg/dL) 197 H 176 H (75-99) mg/dL 03/14/19 03/14/19 03/14/19 Range/Units 06:46 06:53 11:38 RBC (4.30-5.90) m/uL Hct (39.0-53.0) % Carbon Dioxide 31 H (22-30) mmol/L BUN 4 L (9-20) mg/dL Creatinine 0.63 L (0.66-1.25) mg/dL POC Glucose (mg/dL) 105 H 136 H (75-99) mg/dL Assessment and Plan (1) Cancer of sigmoid colon Current Visit: Yes Status: Acute Code(s): C18.7 - MALIGNANT NEOPLASM OF SIGMOID COLON SNOMED Code(s): 317804857
--- NOTE | 2019-03-14 11:27 | P.PN ---
Subjective Progress Note Date: 03/14/19 This is a 63-year-old male, patient of Dr. Suggs. He has a known past medical history of hypertension, hyperlipidemia, COPD, sarcoidosis, diabetes mellitus type 2, obstructive sleep apnea and uses CPAP. He does have a father with a known history of colon cancer. Patient had a routine colonoscopy that revealed adenocarcinoma. Patient was asymptomatic. Denies any change in bowel habits. Denies any rectal bleeding. We have been consulted for medical management. Patient has ordered he had some clear liquids. Denies any abdominal pain any nausea or vomiting. Denies any chest pain or shortness of breath. Urine output is adequate. Kinney catheter is in place. Denies any fevers chills or sweats. On 03/12/2019 patient was seen and examined on the medical floor he is alert and oriented 3 in no apparent distress there is no fever or chills no headache or dizziness no chest pain no shortness of breath no cough no nausea or vomiting no abdominal pain no diarrhea and no urinary symptoms Kinney catheter is still in. On 03/13/2019 Patient was seen and examined on the medical he is alert and oriented 3 in no apparent distress he was complaining of some abdominal pain he had a liquid bowel movement earlier this morning, otherwise it is no complaints there is no fever or chills no headache or dizziness no chest pain no shortness of breath no cough or vomiting no urinary symptoms 03/14/2019 patient's Kinney catheter and epidural discontinued today. He sitting at bedside chair. No evidence of distress. Passing gas and having small bowel movements. He is on a full liquid diet. Denies any chest pain or shortness of breath. Denies any nausea vomiting. Anticipating discharge possibly tomorrow Objective - Vital Signs Vital signs: Vital Signs Temp 97.8 F 03/14/19 06:54 Pulse 79 03/14/19 06:54 Resp 16 03/14/19 06:54 BP 115/74 03/14/19 06:54 Pulse Ox 95 03/14/19 06:54 Intake & Output 03/13/19 03/14/19 03/14/19 18:59 06:59 18:59 Intake Total 170.567 850 Output Total 1900 2100 1300 Balance -1729.433 -1250 -1300 Intake: Intake, IV Titration 170.567 750 Amount Ropivacaine 250 mg 170.567 Hydromorphone (Pf) 5 mg In Sodium Chloride 0.9% 200 ml @ Per Protocol EPIDURAL .Q0M PRN Rx#: [id number] Sodium Chloride 0.9% 1, 750 000 ml @ 75 mls/hr IV . [id number] [facility] Rx#:[id number] Oral 100 Output: Urine 1900 2100 1300 Uretheral (Kinney) 2100 1300 Other: Voiding Method Indwelling Catheter Indwelling Catheter Indwelling Catheter # Voids 2 - Exam Head normocephalic Neck supple Lungs clear to auscultation bilaterally no wheezing or crackles Heart regular rate and rhythm S1-S2, no rub or gallop Abdomen is soft nontender nondistended positive bowel sounds abdominal binder in place no hepatosplenomegaly Extremities no edema Neuro alert and orientated to 3 - Labs CBC & Chem 7: 03/14/19 06:46 03/14/19 06:46 Labs: Abnormal Lab Results - Last 24 Hours (Table) 03/13/19 03/13/19 03/13/19 Range/Units 11:59 17:17 20:55 RBC (4.30-5.90) m/uL Hct (39.0-53.0) % Carbon Dioxide (22-30) mmol/L BUN (9-20) mg/dL Creatinine (0.66-1.25) mg/dL POC Glucose (mg/dL) 131 H 197 H 176 H (75-99) mg/dL 03/14/19 03/14/19 03/14/19 Range/Units 06:46 06:46 06:53 RBC 4.24 L (4.30-5.90) m/uL Hct 38.6 L (39.0-53.0) % Carbon Dioxide 31 H (22-30) mmol/L BUN 4 L (9-20) mg/dL Creatinine 0.63 L (0.66-1.25) mg/dL POC Glucose (mg/dL) 105 H (75-99) mg/dL Assessment and Plan Assessment: 1. 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 Postop day #0. Surgery completed by Dr. Cheung. Estimated blood loss 25 ml. no complications reported. Patient has been started on clear liquids by surgical service. Pain is controlled. 2. Essential hypertension: Blood pressures, stable resume Cozaar 3. History of diabetes mellitus type 2: Resume patient's Toujeo and metformin. Hemoglobin A1c elevated at 9.1 continue Toujeo, metformin and sliding scale patient . Patient's blood sugars are showing improvement. Blood sugars morning 105. Continue to monitor. 4. Hyperlipidemia: Continue statin 5. History of sarcoidosis 6. History of COPD stable no evidence of exacerbation 7. History of obstructive sleep apnea uses CPAP machine at home Anticipate discharge possibly tomorrow GI prophylaxis Pepcid and DVT prophylaxis subcu heparin I performed an examination of the patient and discussed their management with the physician Staff Veterinarian. I have reviewed the Physician Staff Veterinarian's notes and agree with the documented findings and plan of care
[2019-03-14 11:41] LABS: Glucose,Whole Blood 136 mg/dL (75-99)
[2019-03-14] MEDS ORDERED: diphenhydrAMINE 25 MG CAP PO PRN (12:01)
[2019-03-14 17:06] LABS: Glucose,Whole Blood 127 mg/dL (75-99)
[2019-03-14 21:28] LABS: Glucose,Whole Blood 206 mg/dL (75-99)
[2019-03-14] MEDS: ATORVASTATIN 40 MG TAB PO SCH (22:35)
[2019-03-14] MEDS: FAMOTIDINE 20 MG TAB PO SCH (22:35)
[2019-03-15 07:22] LABS: Glucose,Whole Blood 106 mg/dL (75-99)
[2019-03-15 08:08] LABS: Basophils % (A) 0 %; Eosinophils # (A) 0.2 k/uL (0-0.7); Eosinophils % (A) 2 %; HCT 41.4 % (39.0-53.0); HGB 14.1 gm/dL (13.0-17.5); Lymphocytes # (A) 1.3 k/uL (1.0-4.8); Lymphocytes % (A) 18 %; MCH 31.1 pg (25.0-35.0); MCV 91.5 fL (80.0-100.0); Mean Platelet Volume 6.8; Monocytes # (A) 0.4 k/uL (0-1.0); Monocytes % (A) 6 %; Neutrophils # (A) 5.6 k/uL (1.3-7.7); Neutrophils % (A) 73 %; Platelet Count 302 k/uL (150-450); RBC 4.52 m/uL (4.30-5.90); RDW 12.9 % (11.5-15.5); WBC 7.6 k/uL (3.8-10.6)
[2019-03-15 08:17] LABS: ALT 35 U/L (21-72); AST 31 U/L (17-59); Albumin 3.5 g/dL (3.5-5.0); Alkaline Phosphatase 71 U/L (38-126); Anion Gap 8 mmol/L; Blood Urea Nitrogen 6 mg/dL (9-20); Calcium 9.1 mg/dL (8.4-10.2); Carbon Dioxide 27 mmol/L (22-30); Chloride 107 mmol/L (98-107); Glucose 100 mg/dL (74-99); Potassium 3.6 mmol/L (3.5-5.1); Sodium 142 mmol/L (137-145); Total Bilirubin 0.7 mg/dL (0.2-1.3); Total Protein 6.2 g/dL (6.3-8.2)
[2019-03-15] MEDS: INSULIN ASPART (NovoLOG) 100 UNIT/ML VIAL SQ SCH ×2 (08:21→12:44)
[2019-03-15] MEDS ORDERED: HYDROcodone/APAP 5-325MG 1 EACH TAB PO PRN (08:42)
[2019-03-15 08:53] VITALS: RESP 16; TEMP 98
[2019-03-15] MEDS: ALVIMOPAN 12 MG CAPSULE PO SCH (10:45)
[2019-03-15] MEDS: metFORMIN 500 MG TAB PO SCH (10:45)
[2019-03-15] MEDS: HEPARIN SODIUM,PORCINE 5,000 UNIT/ML 1 ML VIAL SQ SCH (10:45)
[2019-03-15] MEDS: FAMOTIDINE 20 MG TAB PO SCH (10:45)
[2019-03-15] MEDS: LOSARTAN 50 MG TAB PO SCH (10:46)
[2019-03-15] MEDS: INSULIN DETEMIR (LEVEMIR) 100 UNIT/ML SYR SQ SCH (10:48)
[2019-03-15 11:27] LABS: Glucose,Whole Blood 173 mg/dL (75-99)
[2019-03-15 13:01] VITALS: BP 157/75; PULSE 86
--- NOTE | 2019-03-15 13:37 | P.DS ---
<AcevedoShirley Karen - Last Filed: 03/15/19 13:36> Providers Expected date of discharge: 03/15/19 Hospital Course: 63-year-old male who underwent sigmoid colectomy secondary to cancer. Patient doing well postoperatively without any immediate complications. Patient is tolerating regular diet. Denies nausea or vomiting. Passing flatus and having bowel movements. Pain is well-controlled on oral medications. Vital signs stable. He is stable for discharge home today. Please see EMR for further hospital course details. Discharge Diagnosis: 1. Sigmoid cancer, status post sigmoid colectomy Nurse practitioner note has been reviewed by physician. Signing provider agrees with the documented findings, assessment, and plan of care. Plan - Discharge Summary Discharge Rx Participant: Yes New Discharge Prescriptions: New Hydrocodone/Acetaminophen [[place] 5-325] 1 tab PO Q6HR PRN 3 Days #10 tab PRN Reason: Pain glipiZIDE [Glucotrol] 5 mg PO AC-TID #90 tab Continue Atorvastatin [Lipitor] 40 mg PO HS metFORMIN HCL 1,000 mg PO BID Losartan Potassium [Cozaar] 50 mg PO QAM Insulin Glargine,Hum.rec.anlog [Toujeo Max Solostar] 64 mg SQ QAM Discharge Medication List Atorvastatin [Lipitor] 40 mg PO HS 10/15/16 [History] Losartan Potassium [Cozaar] 50 mg PO QAM 10/15/16 [History] metFORMIN HCL 1,000 mg PO BID 10/15/16 [History] Insulin Glargine,Hum.rec.anlog [Toujeo Max Solostar] 64 mg SQ QAM 01/07/19 [History] Hydrocodone/Acetaminophen [[place] 5-325] 1 tab PO Q6HR PRN 3 Days #10 tab [Rx] glipiZIDE [Glucotrol] 5 mg PO AC-TID #90 tab 03/15/19 [Rx] Follow up Appointment(s)/Referral(s): El Segura MD [Medical Doctor] - 03/23/19 4:30 pm Ginger Suggs MD [Primary Care Provider] - 03/22/19 1:00 pm Patient Instructions/Handouts: Colectomy (DC) Activity/Diet/Wound Care/Special Instructions: No driving while taking [place] No lifting over 10 pounds You may shower. No soaking or tub baths Very light activity until you are reevaluated at your follow up appointment with your surgeon Discharge Disposition: HOME SELF-CARE <El Sgeura - Last Filed: 03/15/19 16:54> Providers Date of admission: 03/11/19 06:26 Attending physician: El Segura Consults: 03/11/19 11:05 Consult Physician Routine Consulting Provider: Gonsalo Carbone Consult Reason/Comments: Medical management Do you want consulting provider notified?: Yes Primary care physician: Ginger Suggs - Discharge Diagnosis(es) (1) Cancer of sigmoid colon Status: Acute Hospital Course: As above. Patient doing well. Discharge prior to my evaluation.
--- NOTE | 2019-03-15 14:20 | P.PN ---
Subjective Progress Note Date: 03/15/19 This is a 63-year-old male, patient of Dr. Suggs. He has a known past medical history of hypertension, hyperlipidemia, COPD, sarcoidosis, diabetes mellitus type 2, obstructive sleep apnea and uses CPAP. He does have a father with a known history of colon cancer. Patient had a routine colonoscopy that revealed adenocarcinoma. Patient was asymptomatic. Denies any change in bowel habits. Denies any rectal bleeding. We have been consulted for medical management. Patient has ordered he had some clear liquids. Denies any abdominal pain any nausea or vomiting. Denies any chest pain or shortness of breath. Urine output is adequate. Kinney catheter is in place. Denies any fevers chills or sweats. On 03/12/2019 patient was seen and examined on the medical floor he is alert and oriented 3 in no apparent distress there is no fever or chills no headache or dizziness no chest pain no shortness of breath no cough no nausea or vomiting no abdominal pain no diarrhea and no urinary symptoms Kinney catheter is still in. On 03/13/2019 Patient was seen and examined on the medical he is alert and oriented 3 in no apparent distress he was complaining of some abdominal pain he had a liquid bowel movement earlier this morning, otherwise it is no complaints there is no fever or chills no headache or dizziness no chest pain no shortness of breath no cough or vomiting no urinary symptoms 03/14/2019 patient's Kinney catheter and epidural discontinued today. He sitting at bedside chair. No evidence of distress. Passing gas and having small bowel movements. He is on a full liquid diet. Denies any chest pain or shortness of breath. Denies any nausea vomiting. Anticipating discharge possibly tomorrow 03/15/2019 patient is passing gas and having bowel movements. He is tolerating soft diet. Denies any nausea or vomiting. Denies any chest pain or shortness breath. Denies any burning with urination. They're anticipating discharge later today. Patient's heart rate is 102 blood pressure 149/88 awaiting repeat set of afternoon vitals. Objective - Vital Signs Vital signs: Vital Signs Temp 98.0 F 03/15/19 08:14 Pulse 89 03/15/19 08:22 Resp 16 03/15/19 08:22 BP 149/88 03/15/19 08:14 Pulse Ox 93 L 03/15/19 08:14 Intake & Output 03/14/19 03/15/19 03/15/19 18:59 06:59 18:59 Intake Total 540 1640 Output Total 1300 Balance -760 1640 Intake: Intake, IV Titration 1000 Amount Sodium Chloride 0.9% 1, 1000 000 ml @ 75 mls/hr IV . [id number] [facility] Rx#:[id number] Oral 540 640 Output: Urine 1300 Uretheral (Kinney) 1300 Other: Voiding Method Indwelling Catheter Toilet Toilet # Voids 8 3 - Exam Head normocephalic Neck supple Lungs clear to auscultation bilaterally no wheezing or crackles Heart regular rate and rhythm S1-S2, no rub or gallop Abdomen is soft nontender nondistended positive bowel sounds abdominal binder in place no hepatosplenomegaly Extremities no edema Neuro alert and orientated to 3 - Labs CBC & Chem 7: 03/15/19 07:03 03/15/19 07:03 Labs: Abnormal Lab Results - Last 24 Hours (Table) 03/14/19 03/14/19 03/15/19 Range/Units 17:01 21:03 07:00 BUN (9-20) mg/dL Creatinine (0.66-1.25) mg/dL Glucose (74-99) mg/dL POC Glucose (mg/dL) 127 H 206 H 106 H (75-99) mg/dL Total Protein (6.3-8.2) g/dL 03/15/19 03/15/19 Range/Units 07:03 11:22 BUN 6 L (9-20) mg/dL Creatinine 0.65 L (0.66-1.25) mg/dL Glucose 100 H (74-99) mg/dL POC Glucose (mg/dL) 173 H (75-99) mg/dL Total Protein 6.2 L (6.3-8.2) g/dL Assessment and Plan Assessment: 1. 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 Having bowel movements and tolerating diet 2. Essential hypertension: Blood pressures, stable resume Cozaar 3. History of diabetes mellitus type 2: Resume patient's Toujeo and metformin. Hemoglobin A1c elevated at 9.1 continue Toujeo, metformin and sliding scale patient . Glipizide 5 mg before meals 3 times a day will be added at the time of discharge. Recommend patient follows up with PCP and does check blood sugars 3 times a day at home 4. Hyperlipidemia: Continue statin 5. History of sarcoidosis 6. History of COPD stable no evidence of exacerbation 7. History of obstructive sleep apnea uses CPAP machine at home 8. Mild tachycardia heart rate 102. Recheck heart rate is 86. Blood pressure 157/75. Fluids will be hep-locked and that should help lower blood pressure. Patient is medically stable for discharge. We'll have him follow up with his PCP in 1 week. Continue to monitor blood sugars at home. Bring recordings to his PCP GI prophylaxis Pepcid and DVT prophylaxis subcu heparin I performed an examination of the patient and discussed their management with the physician Compressed Gas Equipment Mechanic. I have reviewed the Physician Compressed Gas Equipment Mechanic's notes and agree with the documented findings and plan of care
== END 2019-03-15 15:30 | disposition home or self-care (01) | DRG 330 ==
LOC: 2ORMAIN 06:26 → 4SSUR 11:07 → 4MS4W 03-14 22:09
PROVIDERS: ADMIT Surgery; ATTEND Surgery
PROC: 5A09457 Assistance with Respiratory Ventilation, 24-96 Consecutive Hours, Continuous Positive Airway Pressure (ICD-10-PCS; 2019-03-11)
PROC: 0DBP0ZZ Excision of Rectum, Open Approach (ICD-10-PCS; 2019-03-11)
PROC: 0DJD8ZZ Inspection of Lower Intestinal Tract, Via Natural or Artificial Opening Endoscopic (ICD-10-PCS; 2019-03-11)
PROC: 0DBN0ZZ Excision of Sigmoid Colon, Open Approach (ICD-10-PCS; principal; 2019-03-11 08:00)
DX: C18.7 Malignant neoplasm of sigmoid colon (principal); Z68.41 Body mass index [BMI] 40.0-44.9, adult; J44.9 Chronic obstructive pulmonary disease, unspecified; E11.9 Type 2 diabetes mellitus without complications; I10 Essential (primary) hypertension; E78.5 Hyperlipidemia, unspecified; M19.90 Unspecified osteoarthritis, unspecified site; E66.9 Obesity, unspecified; D86.9 Sarcoidosis, unspecified; G47.33 Obstructive sleep apnea (adult) (pediatric); R00.0 Tachycardia, unspecified; Z79.84 Long term (current) use of oral hypoglycemic drugs; Z96.653 Presence of artificial knee joint, bilateral; Z87.891 Personal history of nicotine dependence; Z82.3 Family history of stroke; Z80.0 Family history of malignant neoplasm of digestive organs
CPT/HCPCS: 36415; 80048; 80051; 80053; 83036; 84132; 85025; 85027; 86850; 86900; 86901; 88309; 93005

== ENCOUNTER 2020-06-05 07:04 | Day surgery (SDC) | payer MEDICARE, OTHER ==
[2020-06-04 08:32] VITALS: BMI 36.2
[~2020-06-05 07:04] MED LIST changes: -ALVIMOPAN 12 MG CAPSULE PO ONE; -DEXAMETHASONE SOD PHOSPHATE 10 MG/ML 1 ML VIAL IV ONE; -HEPARIN SODIUM,PORCINE 5,000 UNIT/ML 1 ML VIAL SQ ONE; -HYDROmorphone 0.5 MG/0.5 ML SYRINGE IVP PRN; +LACTATED RINGERS 1,000 ML IV SCH; +LIDOCAINE 1% (10MG/ML) FOR IV START INTRADERMA PRN; -ONDANSETRON 4 MG/2 ML VIAL IVP ONE; -ceFAZolin 3 GM in SODIUM CHLORIDE 0.9% 100 ML IVPB ONE; -metroNIDAZOLE-NS PMX 500 MG in SALINE 1 100ML.BAG IVPB ONE
[2020-06-05 07:38] VITALS: RESP 16; TEMP 96.8
[2020-06-05 07:40] LABS: Glucose,Whole Blood 181 mg/dL (75-99)
[2020-06-05] MEDS ORDERED: PROPOFOL 10 MG/ML 20 ML VIAL IV ONE (08:03)
[2020-06-05 08:35] LABS: Glucose,Whole Blood 200 mg/dL (75-99)
--- NOTE | 2020-06-05 08:43 | P.PCN ---
Date of Procedure: 06/05/20 Procedure(s) Performed: PREOPERATIVE DIAGNOSIS: History of colon cancer, screening POSTOPERATIVE DIAGNOSIS: Transverse colon polyp 2, descending colon polyp 2, diverticulosis PROCEDURE: Colonoscopy with snare polypectomy ANESTHESIA: MAC SURGEON: El Segura M.D. SPECIMENS: Polyps ENDOSCOPIC PROCEDURE: The patient was placed on the endoscopy table in the left decubitus position. The Olympus colonoscope was inserted into the anus and passed under direct visualization to the base of the cecum. The appendiceal orifice was visualized. From that point the scope was slowly withdrawn inspecting all surfaces carefully. There were no neoplastic inflammatory or polypoid lesions throughout the cecum and ascending colon. In the transverse colon there were 2 polyps identified both removed using the snare with cautery technique. In the descending colon 2 additional polyps are identified and removed in a similar fashion. There was mild left-sided diverticulosis. The anastomosis between the descending colon and rectum was widely patent. The rectum appeared normal. Digital rectal examination was normal. The patient was taken to the recovery room in stable condition per anesthesia guidelines. RECOMMENDATIONS: Await biopsy results. Recommend follow-up colonoscopy 3-5 years.
[2020-06-05 08:56] VITALS: BP 117/71; PULSE 54
== END 2020-06-05 09:15 | disposition home or self-care (01) ==
LOC: ORWHC2ENDO 07:04
PROVIDERS: ATTEND Surgery
DX: Z12.11 Encounter for screening for malignant neoplasm of colon (principal); D12.4 Benign neoplasm of descending colon; K63.5 Polyp of colon; K57.30 Diverticulosis of large intestine without perforation or abscess without bleeding; I10 Essential (primary) hypertension; E11.9 Type 2 diabetes mellitus without complications; E78.5 Hyperlipidemia, unspecified; F32.9 Major depressive disorder, single episode, unspecified; F41.0 Panic disorder [episodic paroxysmal anxiety]; D86.9 Sarcoidosis, unspecified; G47.33 Obstructive sleep apnea (adult) (pediatric); M19.90 Unspecified osteoarthritis, unspecified site; Z99.89 Dependence on other enabling machines and devices; Z79.4 Long term (current) use of insulin; Z79.899 Other long term (current) drug therapy; Z90.89 Acquired absence of other organs; Z96.659 Presence of unspecified artificial knee joint; Z90.49 Acquired absence of other specified parts of digestive tract; Z98.890 Other specified postprocedural states; Z80.0 Family history of malignant neoplasm of digestive organs; Z87.891 Personal history of nicotine dependence; Z85.038 Personal history of other malignant neoplasm of large intestine
CPT/HCPCS: 45385; 88305; J2704

== ENCOUNTER 2023-07-14 08:31 | Day surgery (SDC) | payer MEDICARE, OTHER ==
[2023-07-10 10:27] VITALS: BMI 30.4
[2023-07-14] MEDS ORDERED: LACTATED RINGERS 1,000 ML IV ONE (09:00)
[2023-07-14 09:11] VITALS: TEMP 97.5
[2023-07-14 09:12] LABS: Glucose,Whole Blood 197 mg/dL (70-110)
[2023-07-14] MEDS ORDERED: PROPOFOL 10 MG/ML 20 ML VIAL IV ONE (09:25)
--- NOTE | 2023-07-14 09:29 | P.GSHP ---
History of Present Illness H&P Date: 07/14/23 Chief Complaint: History of colon cancer 67-year-old male here for colonoscopy. Last colonoscopy 3 years ago. Patient with personal history of sigmoid colon cancer underwent resection 2019. No bowel complaints. Past Medical History Past Medical History: Cancer, Diabetes Mellitus, Hyperlipidemia, Hypertension, Osteoarthritis (OA), Sleep Apnea/CPAP/BIPAP Additional Past Medical History / Comment(s): uses cpap, sarcoidosis, COLON CANCER History of Any Multi-Drug Resistant Organisms: None Reported Past Surgical History: Adenoidectomy, Bowel Resection, Joint Replacement, Tonsillectomy Additional Past Surgical History / Comment(s): BILAT TKA bilateral knee replacement 1997. COLONOSCOPY, skin tag removed. BOWEL RESECTION R/T COLON CANCER 2019 Past Anesthesia/Blood Transfusion Reactions: No Reported Reaction Additional Past Anesthesia/Blood Transfusion Reaction / Comment(s): no blood transfusion Smoking Status: Never smoker - Past Family History Mother Family Medical History: Cancer Additional Family Medical History / Comment(s): colon Father Family Medical History: CVA/TIA Sister(s) Family Medical History: Cancer Additional Family Medical History / Comment(s): pancreatic Brother(s) Additional Family Medical History / Comment(s): in sleep at age 51. Medications and Allergies Home Medications Medication Instructions Recorded Confirmed Type Atorvastatin [Lipitor] 40 mg PO HS 10/15/16 07/14/23 History Losartan Potassium [Cozaar] 50 mg PO QAM 10/15/16 07/14/23 History metFORMIN HCL [Glucophage] 1,000 mg PO BID 10/15/16 07/14/23 History Insulin Glargine,Hum.rec.anlog 56 units SQ QAM 01/07/19 07/14/23 History [Toujeo Max Solostar] glipiZIDE [Glucotrol] 5 mg PO BID 06/04/20 07/14/23 History Allergies Allergy/AdvReac Type Severity Reaction Status Date / Time No Known Allergies Allergy Verified 06/05/20 07:20 Surgical - Exam Vital Signs Temp Pulse Resp BP Pulse Ox 97.5 F L 74 16 158/75 96 07/14/23 09:05 07/14/23 09:05 07/14/23 09:05 07/14/23 09:05 07/14/23 09:05 Physical exam: General: Well-developed, well-nourished HEENT: Normocephalic, sclerae nonicteric Abdomen: Nontender, nondistended Extremities: No edema Neuro: Alert and oriented Results - Labs Abnormal Lab Results - Last 24 Hours (Table) 07/14/23 Range/Units 09:09 POC Glucose (mg/dL) 197 H (70-110) mg/dL Assessment and Plan (1) Cancer of sigmoid colon Narrative/Plan: Will proceed with colonoscopy at this time. Current Visit: No Status: Acute Code(s): C18.7 - MALIGNANT NEOPLASM OF SIGMOID COLON SNOMED Code(s): 259691351
--- NOTE | 2023-07-14 09:48 | P.PCN ---
Date of Procedure: 07/14/23 Procedure(s) Performed: PREOPERATIVE DIAGNOSIS: History of colon cancer POSTOPERATIVE DIAGNOSIS: Multiple colon polyps PROCEDURE: Colonoscopy with snare polypectomy ANESTHESIA: MAC SURGEON: El Segura M.D. SPECIMENS: Transverse colon polyps ENDOSCOPIC PROCEDURE: The patient was placed on the endoscopy table in the left decubitus position. The Olympus colonoscope was inserted into the anus and passed under direct visualization to the base of the cecum. The appendiceal orifice was visualized. From that point the scope was slowly withdrawn inspecting all surfaces carefully. The cecum appeared normal. In the ascending colon a small polyp was seen and removed using the snare with cautery technique. This lesion was not able to be suctioned and there was no specimen for the small polyp. In the transverse colon there were 5 polyps all removed using the snare with cautery technique. Largest polyp measuring about 8-10 mm. The descending colon anastomosis and rectum appeared normal. There was no visible diverticulosis. Digital rectal examination was normal. The patient was taken to the recovery room in stable condition per anesthesia guidelines. RECOMMENDATIONS: Await biopsy results. Given the multiple polyps recommend repeat colonoscopy 1-2 years.
[2023-07-14 09:57] LABS: Glucose,Whole Blood 203 mg/dL (70-110)
[2023-07-14] MEDS ORDERED: LACTATED RINGERS 1,000 ML IV SCH (09:57)
[2023-07-14] MEDS ORDERED: LIDOCAINE 1% (10MG/ML) FOR IV START INTRADERMA PRN (09:57)
[2023-07-14 10:22] VITALS: BP 1472/74; PULSE 73; RESP 20
== END 2023-07-14 10:31 | disposition home or self-care (01) ==
LOC: ORWHC2ENDO 08:31
PROVIDERS: ATTEND Surgery
DX: Z12.11 Encounter for screening for malignant neoplasm of colon (principal); D12.3 Benign neoplasm of transverse colon; E11.9 Type 2 diabetes mellitus without complications; I10 Essential (primary) hypertension; E78.5 Hyperlipidemia, unspecified; G47.33 Obstructive sleep apnea (adult) (pediatric); Z86.010 Personal history of colon polyps; Z96.653 Presence of artificial knee joint, bilateral; Z80.0 Family history of malignant neoplasm of digestive organs; Z82.3 Family history of stroke; Z79.84 Long term (current) use of oral hypoglycemic drugs
CPT/HCPCS: 88305; 45385; J2704